=== PATIENT | female | born 1930 | race Caucasian/White ===

== ENCOUNTER 2016-06-19 16:25 | Inpatient (IN) | payer OTHER ==
[~2016-06-19] VITALS: Ht 160 cm; Wt 54.0 kg
[~2016-06-19 16:25] MED LIST: ATENOLOL50 MG PO; LISINOPRIL-HCT1 EAC3 PO; MICRO-K10 ME2 PO
[2016-06-19] MEDS ORDERED: TYLENOL ARTHRI650 MG PO (17:25)
[2016-06-19 18:45] LABS: EOSINOPHIL (%) 0 % (0-5); HEMATOCRIT 52.2 % (36.0-46.0); IMMATURE GRANULOCYTE (%) 0.3 % (0.0-0.7); IMMATURE GRANULOCYTE COUNT 0.5 K/uL; LYMPHOCYTE COUNT 0.8 K/uL (1.0-2.8); MCH 30.6 PG (29.0-34.0); MCHC 33.7 G/DL (30.0-36.0); MCV 90.8 FL (83-99); MEAN PLAT.VOLUME 11.5 uM^3 (9.5-12.4); MONOCYTE (%) 6.8 % (3-12); MONOCYTE COUNT 1.1 K/uL (0-0.8); NEUTROPHIL (%) 87.9 % (45-76); NEUTROPHIL COUNT 14.3 K/uL (1.8-6.4); PLATELET COUNT 236 K/uL (156-360); RBC DIS.WIDTH-CV 14.3 % (11.8-14.6); RBC DIS.WIDTH-SD 46.8 % (39-53); RED BLOOD COUNT 5.75 M/uL (3.80-5.20); WHITE BLOOD COUNT 16.3 K/uL (4.1-10.2)
[2016-06-19 18:53] LABS: CHLORIDE 101 mEq/L (99-109); POTASSIUM 4.9 mEq/L (3.7-5.4); SODIUM 140 mEq/L (136-147)
[2016-06-19 18:55] LABS: GLUCOSE 173 mg/dL (70-99)
[2016-06-19 18:56] LABS: ANION GAP 20 MEQ/L (2-14)
[2016-06-19 18:57] LABS: TOTAL BILIRUBIN 3.7 mg/dL (0.0-1.0)
[2016-06-19 18:58] LABS: ALKALINE PHOSPHATASE 114 IU/L (3-129)
[2016-06-19 18:59] LABS: GFR ESTIMATE (CALCULATED) 20 mL/min/
[2016-06-19 19:00] LABS: UREA NITROGEN (BUN) 43 mg/dL (9-23)
[2016-06-19 19:02] LABS: LIPASE > 1055 U/L (1.0-51.0)
[2016-06-19 19:04] LABS: TROP-I INTERPRETATION NEGATIVE; TROPONIN-I 0.06 ng/mL (0.0-0.30)
[2016-06-19 21:09] LABS: INTER. NORMALIZED RATIO 2.1
[2016-06-19 21:10] LABS: PROTHROMBIN TIME 21.9 (9.2-11.2)
[2016-06-19] MEDS ORDERED: ATENOLOL25 MG PO (21:27)
[2016-06-19] MEDS ORDERED: PROTONIX40 MG PO (21:28)
[2016-06-19] MEDS ORDERED: WARFARIN SODIUM5 MG PO (21:28)
[2016-06-20] VITALS (10 sets, daily range): BP systolic 133–171; BP diastolic 67–89
[2016-06-20 08:42] LABS: EOSINOPHIL (%) 0 % (0-5); HEMATOCRIT 43.8 % (36.0-46.0); IMMATURE GRANULOCYTE (%) 0.2 % (0.0-0.7); LYMPHOCYTE COUNT 0.9 K/uL (1.0-2.8); MCH 32.6 PG (29.0-34.0); MCHC 35.4 G/DL (30.0-36.0); MCV 92.2 FL (83-99); MEAN PLAT.VOLUME 12.5 uM^3 (9.5-12.4); MONOCYTE COUNT 0.9 K/uL (0-0.8); NEUTROPHIL (%) 85.5 % (45-76); NEUTROPHIL COUNT 10.7 K/uL (1.8-6.4); PLATELET COUNT 166 K/uL (156-360); RBC DIS.WIDTH-CV 14.5 % (11.8-14.6); RBC DIS.WIDTH-SD 49.1 % (39-53); RED BLOOD COUNT 4.75 M/uL (3.80-5.20); WHITE BLOOD COUNT 12.5 K/uL (4.1-10.2)
[2016-06-20 08:52] LABS: INTER. NORMALIZED RATIO 1.5; PROTHROMBIN TIME 15.1 (9.2-11.2)
[2016-06-20 09:07] LABS: ALKALINE PHOSPHATASE 79 IU/L (3-129); ANION GAP 16 MEQ/L (2-14); CHLORIDE 105 MEQ/L (99-109); GFR ESTIMATE (CALCULATED) 18 mL/min/; GLUCOSE 124 mg/dL (70-99); POTASSIUM 4.7 MEQ/L (3.7-5.4); SAMPLE HEMOLYSIS CHECK 1; SAMPLE ICTERIC CHECK 1; SAMPLE LIPEMIA CHECK 0; SODIUM 142 MEQ/L (136-147); UREA NITROGEN (BUN) 60 mg/dL (9-23)
[2016-06-20 09:18] LABS: LIPASE 723 U/L (1.0-51.0); TRIGLYCERIDES 156 MG/DL (Normal: <150)
[2016-06-20 09:19] LABS: AMYLASE 397 IU/L (1-118)
[2016-06-20 09:43] LABS: ADD MIUA? YES; BILIRUBIN NEGATIVE; BLOOD LARGE; COLOR AMBER ((YELLOW)); GLUCOSE (STRIP) 50; KETONES NEGATIVE; LEUKOCYTES NEGATIVE; NITRITE NEGATIVE; PROTEIN (STRIP) 100; SPECIFIC GRAVITY 1.014 (1.000-1.030); UROBILINOGEN 0.2 MG/DL (0.2-1.0)
[2016-06-20 10:30] LABS: BACTERIA 3+ /HPF; EPITHELIAL CELLS 1+ /HPF; MUCUS NONE SEEN /LPF; RED BLOOD CELLS 15-20 /HPF (0-5); UCUL ADDED? YES
[2016-06-20 10:31] LABS: CRYSTALS NONE SEEN
[2016-06-20 10:32] LABS: CASTS PRESENT /LPF
[2016-06-21 00:01] VITALS: BP 142/72
[2016-06-21 03:51] VITALS: BP 156/77
[2016-06-21 06:55] LABS: INTER. NORMALIZED RATIO 1.1; PROTHROMBIN TIME 11.4 (9.2-11.2)
[2016-06-21 07:32] VITALS: BP 170/81
[2016-06-21 07:41] LABS: ALKALINE PHOSPHATASE 59 IU/L (3-129); ANION GAP 13 MEQ/L (2-14); CHLORIDE 113 MEQ/L (99-109); GFR ESTIMATE (CALCULATED) 16 mL/min/; GLUCOSE 134 mg/dL (70-99); LIPASE 291 U/L (1.0-51.0); SAMPLE HEMOLYSIS CHECK 1; SAMPLE ICTERIC CHECK 1; SAMPLE LIPEMIA CHECK 0; SODIUM 145 MEQ/L (136-147); UREA NITROGEN (BUN) 78 mg/dL (9-23)
[2016-06-21 07:53] LABS: POTASSIUM 4.3 MEQ/L (3.7-5.4); TOTAL BILIRUBIN 3.4 MG/DL (0.0-1.0)
[2016-06-21 07:54] LABS: AMYLASE 439 IU/L (1-118)
[2016-06-21 08:10] LABS: HEMATOCRIT 41.6 % (36.0-46.0); INSTRUMENT ABS NEUTROPHIL CT 11.4 K/uL; MCH 30.5 PG (29.0-34.0); MCHC 32.9 G/DL (30.0-36.0); MCV 92.7 FL (83-99); RBC DIS.WIDTH-CV 14.9 % (11.8-14.6); RBC DIS.WIDTH-SD 50.6 % (39-53); RED BLOOD COUNT 4.49 M/uL (3.80-5.20); WHITE BLOOD COUNT 12.9 K/uL (4.1-10.2)
[2016-06-21 08:31] LABS: PLATELET COUNT ND K/uL (156-360)
[2016-06-21 08:39] LABS: ATYPICAL LYMPHOCYTE 0.9 %; BAND NEUTROPHILS 46.1 % (0-8.0); EOSINOPHIL ABS CT 0; LYMPHOCYTES 3.5 % (15.0-45.0); METAMYELOCYTES 0.9 %; SEG.NEUTROPHILS 46.9 % (46.0-76.0)
[2016-06-21 08:44] LABS: DELETE MACHINE DIFF? YES
[2016-06-21 11:27] VITALS: BP 135/63
[2016-06-21 12:33] LABS: C DIFF TOXIN NEGATIVE (NEGATIVE)
[2016-06-21 12:34] LABS: PROBE CHECK PASS; SPECIMEN PROCESSING CONTROL PASS
[2016-06-21 16:59] VITALS: BP 147/70
[2016-06-21 19:40] VITALS: BP 157/71
[2016-06-22 00:50] VITALS: BP 160/75
[2016-06-22 04:59] VITALS: BP 136/61
[2016-06-22 06:40] LABS: HEMATOCRIT 38.9 % (36.0-46.0); MCH 31.4 PG (29.0-34.0); MCHC 33.2 G/DL (30.0-36.0); MCV 94.6 FL (83-99); NRBC (%) 0.2 /100 WBC (0-0); PLATELET COUNT 168 K/uL (156-360); RBC DIS.WIDTH-CV 15.4 % (11.8-14.6); RBC DIS.WIDTH-SD 53.1 % (39-53); RED BLOOD COUNT 4.11 M/uL (3.80-5.20)
[2016-06-22 07:09] LABS: ALKALINE PHOSPHATASE 57 IU/L (3-129); ANION GAP 14 MEQ/L (2-14); CHLORIDE 112 MEQ/L (99-109); GFR ESTIMATE (CALCULATED) 19 mL/min/; GLUCOSE 112 mg/dL (70-99); LIPASE 143 U/L (1.0-51.0); SAMPLE HEMOLYSIS CHECK 1; SAMPLE ICTERIC CHECK 0; SAMPLE LIPEMIA CHECK 0; SODIUM 145 MEQ/L (136-147); UREA NITROGEN (BUN) 73 mg/dL (9-23)
[2016-06-22 07:10] LABS: AMYLASE 1063 IU/L (1-118); MAGNESIUM 1.9 mg/dl (1.3-2.7); POTASSIUM 3.3 MEQ/L (3.7-5.4); TOTAL BILIRUBIN 2.3 MG/DL (0.0-1.0)
[2016-06-22 07:20] VITALS: BP 131/39
[2016-06-22 08:17] LABS: EOSINOPHIL (%) 0 % (0-5); IMMATURE GRANULOCYTE (%) 0.9 % (0.0-0.7); IMMATURE GRANULOCYTE COUNT 0.1 K/uL; INSTRUMENT ABS NEUTROPHIL CT 11.5 K/uL; LYMPHOCYTE COUNT 0.5 K/uL (1.0-2.8); MONOCYTE (%) 6.5 % (3-12); MONOCYTE COUNT 0.8 K/uL (0-0.8); NEUTROPHIL (%) 88.5 % (45-76); NEUTROPHIL COUNT 11.5 K/uL (1.8-6.4)
[2016-06-22 09:12] LABS: UR CREATININE CONCENTRATION 30.1 MG/DL
[2016-06-22 11:28] VITALS: BP 136/63
[2016-06-22 15:58] VITALS: BP 157/74
[2016-06-22 20:43] VITALS: BP 147/73
[2016-06-23 00:06] VITALS: BP 133/81
[2016-06-23 03:53] VITALS: BP 154/22; BP 154/72
[2016-06-23 07:21] LABS: ALKALINE PHOSPHATASE 60 IU/L (3-129); ANION GAP 11 MEQ/L (2-14); CHLORIDE 111 MEQ/L (99-109); GFR ESTIMATE (CALCULATED) 24 mL/min/; GLUCOSE 111 mg/dL (70-99); LIPASE 97 U/L (1.0-51.0); SAMPLE HEMOLYSIS CHECK 1; SAMPLE ICTERIC CHECK 0; SAMPLE LIPEMIA CHECK 0; SODIUM 146 MEQ/L (136-147); UREA NITROGEN (BUN) 59 mg/dL (9-23)
[2016-06-23 07:24] VITALS: BP 169/72
[2016-06-23 07:24] LABS: POTASSIUM 3.1 MEQ/L (3.7-5.4)
[2016-06-23 07:25] LABS: AMYLASE 653 IU/L (1-118); TOTAL BILIRUBIN 1.6 MG/DL (0.0-1.0)
[2016-06-23 07:45] LABS: EOSINOPHIL (%) 0.2 % (0-5); HEMATOCRIT 36.4 % (36.0-46.0); IMMATURE GRANULOCYTE (%) 1.6 % (0.0-0.7); IMMATURE GRANULOCYTE COUNT 0.2 K/uL; INSTRUMENT ABS NEUTROPHIL CT 11.1 K/uL; LYMPHOCYTE COUNT 0.6 K/uL (1.0-2.8); MCH 30.7 PG (29.0-34.0); MCHC 33.2 G/DL (30.0-36.0); MCV 92.4 FL (83-99); MEAN PLAT.VOLUME 12.3 uM^3 (9.5-12.4); MONOCYTE (%) 8.6 % (3-12); MONOCYTE COUNT 1.1 K/uL (0-0.8); NEUTROPHIL (%) 84.5 % (45-76); NEUTROPHIL COUNT 11.1 K/uL (1.8-6.4); NRBC (%) 0.2 /100 WBC (0-0); PLATELET COUNT 176 K/uL (156-360); RBC DIS.WIDTH-CV 15.4 % (11.8-14.6); RBC DIS.WIDTH-SD 51.4 % (39-53); RED BLOOD COUNT 3.94 M/uL (3.80-5.20); WHITE BLOOD COUNT 13.1 K/uL (4.1-10.2)
[2016-06-23 11:40] VITALS: BP 133/63
[2016-06-23 15:20] VITALS: BP 156/67
[2016-06-23 19:00] VITALS: BP 148/72
[2016-06-24 00:29] VITALS: BP 141/68
[2016-06-24 04:19] VITALS: BP 138/72
[2016-06-24 06:59] LABS: EOSINOPHIL (%) 0.7 % (0-5); EOSINOPHIL COUNT 0.1 K/uL (0-0.3); HEMATOCRIT 35.7 % (36.0-46.0); IMMATURE GRANULOCYTE (%) 2.3 % (0.0-0.7); IMMATURE GRANULOCYTE COUNT 0.3 K/uL; INSTRUMENT ABS NEUTROPHIL CT 9.3 K/uL; LYMPHOCYTE COUNT 0.8 K/uL (1.0-2.8); MCH 30.3 PG (29.0-34.0); MCHC 33.1 G/DL (30.0-36.0); MCV 91.8 FL (83-99); MEAN PLAT.VOLUME 12.1 uM^3 (9.5-12.4); MONOCYTE (%) 10.6 % (3-12); MONOCYTE COUNT 1.2 K/uL (0-0.8); NEUTROPHIL (%) 79.5 % (45-76); NEUTROPHIL COUNT 9.3 K/uL (1.8-6.4); NRBC (%) 0.2 /100 WBC (0-0); PLATELET COUNT 168 K/uL (156-360); RBC DIS.WIDTH-CV 15.1 % (11.8-14.6); RBC DIS.WIDTH-SD 50.4 % (39-53); RED BLOOD COUNT 3.89 M/uL (3.80-5.20); WHITE BLOOD COUNT 11.7 K/uL (4.1-10.2)
[2016-06-24 07:33] LABS: ANION GAP 13 MEQ/L (2-14); CHLORIDE 110 MEQ/L (99-109); GLUCOSE 107 mg/dL (70-99); LIPASE 84 U/L (1.0-51.0); POTASSIUM 2.8 MEQ/L (3.7-5.4); SAMPLE HEMOLYSIS CHECK 0; SAMPLE ICTERIC CHECK 0; SAMPLE LIPEMIA CHECK 0; SODIUM 146 MEQ/L (136-147); UREA NITROGEN (BUN) 46 mg/dL (9-23)
[2016-06-24 07:38] LABS: GFR ESTIMATE (CALCULATED) 32 mL/min/
[2016-06-24 07:39] LABS: AMYLASE 119 IU/L (1-118)
[2016-06-24 08:21] VITALS: BP 149/70
[2016-06-24 12:41] VITALS: BP 157/71
[2016-06-24 13:32] LABS: PREALBUMIN 7.7 mg/dL (10-40)
[2016-06-24 16:06] VITALS: BP 137/63
[2016-06-24 16:09] LABS: ANION GAP 8 MEQ/L (2-14); CHLORIDE 106 MEQ/L (99-109); GFR ESTIMATE (CALCULATED) 32 mL/min/; GLUCOSE 144 mg/dL (70-99); POTASSIUM 2.7 MEQ/L (3.7-5.4); SAMPLE HEMOLYSIS CHECK 0; SAMPLE ICTERIC CHECK 0; SAMPLE LIPEMIA CHECK 0; SODIUM 141 MEQ/L (136-147); UREA NITROGEN (BUN) 40 mg/dL (9-23)
[2016-06-24 19:59] VITALS: BP 155/65
[2016-06-25] VITALS (7 sets, daily range): BP systolic 132–149; BP diastolic 59–87
[2016-06-25 07:05] LABS: EOSINOPHIL (%) 1.1 % (0-5); EOSINOPHIL COUNT 0.1 K/uL (0-0.3); HEMATOCRIT 35.4 % (36.0-46.0); IMMATURE GRANULOCYTE (%) 4.5 % (0.0-0.7); IMMATURE GRANULOCYTE COUNT 0.5 K/uL; INSTRUMENT ABS NEUTROPHIL CT 8.2 K/uL; LYMPHOCYTE COUNT 0.9 K/uL (1.0-2.8); MCH 30.8 PG (29.0-34.0); MCHC 33.1 G/DL (30.0-36.0); MCV 93.2 FL (83-99); MEAN PLAT.VOLUME 12.3 uM^3 (9.5-12.4); MONOCYTE (%) 12.6 % (3-12); MONOCYTE COUNT 1.4 K/uL (0-0.8); NEUTROPHIL (%) 73.9 % (45-76); NEUTROPHIL COUNT 8.2 K/uL (1.8-6.4); NRBC (%) 0.2 /100 WBC (0-0); PLATELET COUNT 167 K/uL (156-360); RBC DIS.WIDTH-CV 15.4 % (11.8-14.6)
[2016-06-25 07:28] LABS: ANION GAP 9 MEQ/L (2-14); CHLORIDE 106 MEQ/L (99-109); GFR ESTIMATE (CALCULATED) 41 mL/min/; POTASSIUM 3.2 MEQ/L (3.7-5.4); SAMPLE HEMOLYSIS CHECK 0; SAMPLE ICTERIC CHECK 0; SAMPLE LIPEMIA CHECK 0; SODIUM 142 MEQ/L (136-147); UREA NITROGEN (BUN) 35 mg/dL (9-23)
[2016-06-25 07:29] LABS: GLUCOSE 105 mg/dL (70-99)
[2016-06-26 04:09] VITALS: BP 143/78
[2016-06-26 06:59] LABS: EOSINOPHIL (%) 2.6 % (0-5); EOSINOPHIL COUNT 0.3 K/uL (0-0.3); HEMATOCRIT 34.4 % (36.0-46.0); IMMATURE GRANULOCYTE (%) 4.8 % (0.0-0.7); IMMATURE GRANULOCYTE COUNT 0.5 K/uL; INSTRUMENT ABS NEUTROPHIL CT 7.7 K/uL; LYMPHOCYTE COUNT 0.8 K/uL (1.0-2.8); MCHC 32.8 G/DL (30.0-36.0); MCV 94.2 FL (83-99); MEAN PLAT.VOLUME 11.8 uM^3 (9.5-12.4); MONOCYTE (%) 10.3 % (3-12); MONOCYTE COUNT 1.1 K/uL (0-0.8); NEUTROPHIL (%) 74.7 % (45-76); NEUTROPHIL COUNT 7.7 K/uL (1.8-6.4); PLATELET COUNT 175 K/uL (156-360); RBC DIS.WIDTH-CV 15.4 % (11.8-14.6); RBC DIS.WIDTH-SD 51.4 % (39-53); RED BLOOD COUNT 3.65 M/uL (3.80-5.20); WHITE BLOOD COUNT 10.3 K/uL (4.1-10.2)
[2016-06-26 07:20] LABS: ALKALINE PHOSPHATASE 54 IU/L (3-129); ANION GAP 12 MEQ/L (2-14); CHLORIDE 108 MEQ/L (99-109); GFR ESTIMATE (CALCULATED) 45 mL/min/; GLUCOSE 97 mg/dL (70-99); POTASSIUM 3.5 MEQ/L (3.7-5.4); SAMPLE HEMOLYSIS CHECK 0; SAMPLE ICTERIC CHECK 0; SAMPLE LIPEMIA CHECK 0; SODIUM 145 MEQ/L (136-147); UREA NITROGEN (BUN) 27 mg/dL (9-23)
[2016-06-26 07:21] LABS: MAGNESIUM 1.4 mg/dl (1.3-2.7)
[2016-06-26 07:22] LABS: TOTAL BILIRUBIN 0.9 MG/DL (0.0-1.0)
[2016-06-26 09:27] VITALS: BP 147/76
[2016-06-26 11:08] VITALS: BP 128/68
[2016-06-26 16:18] VITALS: BP 129/60
[2016-06-26 20:01] VITALS: BP 151/67
[2016-06-27] VITALS (7 sets, daily range): BP systolic 128–155; BP diastolic 62–89
[2016-06-27 07:14] LABS: ANION GAP 8 MEQ/L (2-14); CHLORIDE 107 MEQ/L (99-109); GFR ESTIMATE (CALCULATED) 50 mL/min/; GLUCOSE 113 mg/dL (70-99); POTASSIUM 3.3 MEQ/L (3.7-5.4); SAMPLE HEMOLYSIS CHECK 0; SAMPLE ICTERIC CHECK 0; SAMPLE LIPEMIA CHECK 0; SODIUM 144 MEQ/L (136-147); UREA NITROGEN (BUN) 22 mg/dL (9-23)
[2016-06-28 00:05] VITALS: BP 128/72
[2016-06-28 03:43] VITALS: BP 135/72
[2016-06-28 07:02] VITALS: BP 131/68
[2016-06-28 10:56] VITALS: BP 149/72
[2016-06-28 16:03] VITALS: BP 143/66
[2016-06-28] MEDS ORDERED: SENNA PLUS TAB1 EACH PO (16:51)
[2016-06-28] MEDS ORDERED: THERAGRAN1 TABLET PO (16:51)
[2016-06-28] MEDS ORDERED: LO-DOSE ASPIRIN81 M2 PO (16:51)
[2016-06-28] MEDS ORDERED: POTASSIUM CHLO10 MEQ PO (17:00)
== END 2016-06-28 18:08 | disposition home or self-care (01) | DRG 438 ==
LOC: EME 16:25 → EDOF 22:30 → 4EAST 22:30
PROVIDERS: Emergency Medicine; Internal Medicine; Internal Medicine Nephrology; Specialist
DX: K85.10 Biliary acute pancreatitis without necrosis or infection (principal); K66.1 Hemoperitoneum; N17.0 Acute kidney failure with tubular necrosis; N39.0 Urinary tract infection, site not specified; R64 Cachexia; E44.0 Moderate protein-calorie malnutrition; Z68.1 Body mass index [BMI] 19.9 or less, adult; I69.391 Dysphagia following cerebral infarction; R13.12 Dysphagia, oropharyngeal phase; K80.20 Calculus of gallbladder without cholecystitis without obstruction; E86.0 Dehydration; R33.9 Retention of urine, unspecified; E87.6 Hypokalemia; E88.09 Other disorders of plasma-protein metabolism, not elsewhere classified; E83.39 Other disorders of phosphorus metabolism; K29.70 Gastritis, unspecified, without bleeding; K30 Functional dyspepsia; K44.9 Diaphragmatic hernia without obstruction or gangrene; D64.9 Anemia, unspecified; I48.0 Paroxysmal atrial fibrillation; N18.3 Chronic kidney disease, stage 3 (moderate); I12.9 Hypertensive chronic kidney disease with stage 1 through stage 4 chronic kidney disease, or unspecified chronic kidney disease; E78.5 Hyperlipidemia, unspecified; Z79.01 Long term (current) use of anticoagulants; Z86.73 Personal history of transient ischemic attack (TIA), and cerebral infarction without residual deficits
CPT/HCPCS: 36415; 74176; 74181; 74220; 74230; 76705; 76770; 80048; 80048 91; 80053; 80069; 81003; 82150; 82570; 83690; 83735; 84100; 84132 91; 84134; 84156; 84300; 84478; 84484; 85025; 85610; 86038; 86850; 86900; 86901; 87086; 87177; 87493; 87506; 88305; 88342 TC; 92610 GN; 92611 GN; 93005; 97530 GP; 99281; 99285; C1725; C9113; J0360; J0696; J1170; J2405; J3480; J7030; J7040; J7050; P9017; S0028